=== PATIENT | female | born 1965 | race African-American/Black ===

== ENCOUNTER 2017-03-30 08:41 | Day surgery (SDC) | payer OTHER ==
[2017-03-30 08:59] VITALS: BMI 24.4
[2017-03-30] MEDS ORDERED: PROPOFOL 20 ML ONE (09:55)
[2017-03-30 10:43] VITALS: TEMP 97.8
[2017-03-30 11:13] VITALS: BP 120/66; PULSE 74
--- NOTE | 2017-03-31 13:24 | PATH ---
Surgical Pathology Report Patient Name: LENKA WEBSTER [facility]. Rec. #: [id number] /Age/Gender: 1965 (Age: 52) / F Account: [id number] Location: Taken: 03/30/2017 Received: 03/30/2017 Reported: 03/31/2017 Physicians: Ambrosio Swartz M.D. Specimen(s) Received POLYP RECTO-SIGMOID Clinical History Preoperative diagnosis: Screening Postoperative diagnosis: Rectosigmoid polyp Final Diagnosis COLON, RECTOSIGMOID, BIOPSY: HYPERPLASTIC POLYPS. Electronically Signed Cheko Singleton M.D. Gross Description Received in formalin, labeled "polyp rectosigmoid" are 2 deleon, irregular portions of soft tissue measuring 0.1 and 0.2 cm. in greatest dimension. The specimens are submitted in toto in one cassette. 03/30/201703/30/2017
== END 2017-03-30 11:16 | disposition home or self-care (01) ==
LOC: FASU-ENDO 08:41
PROVIDERS: ATTEND Internal Medicine Gastroenterology
PROC: 0DBN8ZX Excision of Sigmoid Colon, Via Natural or Artificial Opening Endoscopic, Diagnostic (ICD-10-PCS; principal; 2017-03-30 09:30)
DX: Z12.11 Encounter for screening for malignant neoplasm of colon (principal); D12.7 Benign neoplasm of rectosigmoid junction
CPT/HCPCS: 88305-TC

== ENCOUNTER 2022-04-27 15:25 | Emergency (ER) | payer OTHER ==
[2022-04-27 16:11] VITALS: BP 134/70; PULSE 90; RESP 20; TEMP 98.1; BMI 24.6
== END 2022-04-27 18:08 | disposition home or self-care (01) ==
LOC: JER 15:25
DX: U07.1 COVID-19 (principal); R05.1 Acute cough
CPT/HCPCS: 0241U-QW; 99283-25

== ENCOUNTER 2022-07-18 11:15 | Emergency (ER) | payer OTHER ==
[2022-07-18 11:26] VITALS: BMI 24.4
[2022-07-18 12:44] LABS: BASO % 0.6 % (0-2.0); EOS % 0.6 % (0-4.5); HEMATOCRIT 37.7 % (32.4-45.2); HEMOGLOBIN 12.9 GM/dL (10.7-15.3); MCH 29.7 pg (25.7-33.7); MCHC 34.2 g/dl (32.0-36.0); MEAN CELL VOLUME 86.7 fl (80-96); MEAN PLT VOLUME 6.8 fl (7.5-11.1); MONO % 9.1 % (3.8-10.2); NEUT % 72.7 % (42.8-82.8); PLATELET COUNT 297 10^3/uL (134-434); RBC 4.35 M/mm3 (3.60-5.2); RDW 13.5 % (11.6-15.6); WHITE BLOOD COUNT 6.7 K/mm3 (4.0-10.0)
[2022-07-18 13:12] LABS: CALCIUM 9.4 mg/dL (8.5-10.1)
[2022-07-18 13:13] LABS: ALBUMIN 3.9 g/dl (3.4-5.0)
[2022-07-18 13:16] LABS: CREATININE 0.9 mg/dL (0.55-1.3)
[2022-07-18 13:17] LABS: BILIRUBIN,TOTAL 0.3 mg/dL (0.2-1); TOT PROT 7.2 g/dl (6.4-8.2)
[2022-07-18 16:35] VITALS: BP 136/78; PULSE 72; RESP 16; TEMP 98.1
== END 2022-07-18 16:40 | disposition home or self-care (01) ==
LOC: JER 11:15
DX: R20.2 Paresthesia of skin (principal); G56.01 Carpal tunnel syndrome, right upper limb; H61.21 Impacted cerumen, right ear; M79.601 Pain in right arm; M25.531 Pain in right wrist; Z86.16 Personal history of COVID-19
CPT/HCPCS: 36415; 70450-TC; 71046-TC-FY; 72125-TC; 80053; 82550; 83735; 84484; 85025; 93005; 93010; 99285-25